=== PATIENT | female | born 1990 | race Hispanic/Latino ===

== ENCOUNTER 2020-04-05 18:04 | Emergency (ER) | payer SELFPAY ==
[2020-04-06 01:38] LABS: SARS-CoV-2 MS2 Positive; SARS-CoV-2 N Gene Negative; SARS-CoV-2 S Gene Negative; SARS-CoV-2 by NAA Not Detected (NotDetected); SARS-CoV-2 orf1ab Negative
== END 2020-04-05 18:23 | disposition home or self-care (01) ==
LOC: ERS 18:04
DX: Z20.822 Contact with and (suspected) exposure to COVID-19 (principal); Z3A.24 24 weeks gestation of pregnancy
CPT/HCPCS: 87635; 99283; U0003

== ENCOUNTER 2020-04-19 13:11 | Outpatient (CLI) | payer OTHER ==
--- NOTE | 2020-04-19 14:18 | ULT ---
OB ULTRASOUND: 04/19/20 INDICATIONS: Assess anatomy. Routine. FINDINGS: There is a single viable intrauterine . Gestational age by ultrasound is 23 weeks, 4 days. Biometry: BPD: 23 week, 4 day HC: 23 week, 2 day AC: 23 week, 3 day FL: 23 week, 6 day EFW: 602 grams, 23 week, 3 day Placenta: Posterior. Presentation: Vertex. Amniotic fluid: Adequate. JP: 17.4 cm. Cervical length: 3.4 cm. heart rate: 129 bpm. ANATOMY: Intracranial contents, four chamber heart, stomach, kidneys, cord insertion, bladder, spine lips, nos e, extremities and three vessel cord were all imaged. No abnormality identified. IMPRESSION: 23 week, 4 day gestation by ultrasound. POS: OFF
== END 2020-04-19 13:12 | disposition home or self-care (01) ==
LOC: BICULT 13:11
PROVIDERS: ATTEND Family Medicine
DX: O09.892 Supervision of other high risk pregnancies, second trimester (principal); Z3A.23 23 weeks gestation of pregnancy
CPT/HCPCS: 76805